=== PATIENT | male | born 1965 | race Caucasian/White ===

== ENCOUNTER 2020-07-08 16:36 | Emergency (ER) | payer BC, SELFPAY ==
[2020-07-08 16:37] VITALS: BP 130/97; PULSE 76; RESP 14; TEMP 36.8; O2SAT 97; BMI 21.7
--- NOTE | 2020-07-08 16:59 | EKG12_ITS ---
Test Reason : Blood Pressure : / mmHG Vent. Rate : 070 BPM Atrial Rate : 070 BPM P-R Int : 134 ms QRS Dur : 112 ms QT Int : 402 ms P-R-T Axes : 075 068 066 degrees QTc Int : 434 ms Normal sinus rhythm RSR' or QR pattern in V1 suggests right ventricular conduction delay Borderline ECG Confirmed by ZACHARIAH RODRIGUEZ, ROSS ([id number]), medical editor SANDOVAL ORTIZ ([id number]) on 07/10/2020 1:37:13 PM Referred By: SONY Confirmed By:ROSS SONI MD
--- NOTE | 2020-07-08 16:59 | ED.VIS.GEN ---
History of Present Illness Chief Complaint: Chest Pain Informant: Patient Onset: Yesterday Timing: Intermittent Current Severity: Mild Maximum Severity: Moderate Narrative: Patient presents with left upper chest pain that began yesterday afternoon. He states he noted an ache near the left axilla yesterday. It seemed to go away by bedtime but that he woke with the pain again this morning. It has been waxing and waning throughout the day today. At this time he states his chest feels tight. He does not feel short of breath. Patient denies history of cardiac disease. He has never had a stress test or heart cath. Family history significant for an uncle who had a cardiac arrest in his late 50s. Past Medical History - Allergies and Home Meds Allergies/Adverse Reactions: Allergies No Known Allergies Allergy (Verified 07/08/20 16:37) Primary Care Physician: Luis Daniel Ruby MD [Primary Care Provider] - As soon as possible Prior records reviewed: Yes Past Medical History: None Smoking Status: Current every day smoker Review of Systems General: Denies: Chills, Fever Eyes: Denies: Visual changes - bilaterally ENT: Denies: Bilateral ear pain Cardiovascular: Reports: Chest pain. Denies: Heart racing Respiratory: Denies: Dyspnea, Cough Gastrointestinal: Denies: Abdominal pain, Nausea, Vomiting Genitourinary: Denies: Dysuria Musculoskeletal: Denies: Swelling, Extremity Pain Skin: Denies: Rash Neurological: Denies: Headache Hematologic: Denies: Easy bruising, Easy bleeding Allergy: Denies: Uticaria Physical Exam Vital Signs/Narrative: Vital Signs Temp Pulse Resp BP Pulse Ox 07/08/20 16:37 98.2 F 76 14 130/97 H 97 Inital Vital Signs reviewed: Yes General: Well nourished, Well developed Head: Normocephalic ENT: Moist mucous membranes Neck: Supple Cardiovascular: Regular rate, Regular rhythm Respiratory: No distress, CTA bilaterally, Chest nontender Abdomen: Soft, Nontender Back: Nontender Extremities: Nontender Skin: Normal color, No rash Neurological: Alert, Oriented x3 Psychological: Normal affect Diagnostic/Tx/Re-eval Chest X-Ray - ED: 1 View, Read by ED Physician, Chronic Changes, No Infiltrates Impressions Chest X-Ray 07/08/20 17:20 IMPRESSION: Nonacute portable x-ray examination of the chest. Electronically Signed: Cb Kebede MD (Brooks) at 17:33 EDT , Service support , 07/08/20 17:20 Chest 1 View (Portable) [RAD] Stat Laboratory Results 07/08/20 07/08/20 07/08/20 16:50 16:50 16:50 WBC 4.8 RBC 4.42 L Hgb 14.2 Hct 40.7 MCV 92.1 MCH 32.1 H MCHC 34.9 RDW Std Deviation 43.1 RDW Coeff of Sammy 12.6 Plt Count 242 MPV 9.7 Immature Gran % (Auto) 0.200 Neut % (Auto) 61.7 Lymph % (Auto) 23.7 Wayne % (Auto) 12.1 H Eos % (Auto) 1.7 Baso % (Auto) 0.6 Absolute Neuts (auto) 3.0 Absolute Lymphs (auto) 1.14 Nucleated RBC % 0 D-Dimer Quant (PE/DVT) <= 0.27 Sodium 138 Potassium 3.3 L Chloride 106 Carbon Dioxide 27.0 Anion Gap 5 BUN 12 Creatinine 0.72 Estim Creat Clear Calc 111.00 Est GFR (MDRD) Af Amer 144 Est GFR (MDRD) Non-Af 119 BUN/Creatinine Ratio 16.6 Glucose 104 Calcium 8.5 Troponin I < 0.015 - EKG Initial EKG Interpretation: Sinus Rhythm - Sinus at 70 with no acute ischemia. - Medical Decision Making Patient was given aspirin here. Patient has remained comfortable throughout his ED stay. No arrhythmias noted on cardiac monitor technician. Labs are unremarkable with a negative troponin and negative D-dimer. Test results discussed with patient and at bedside. I did suggest hospital observation for potential stress test on Friday as he does have a family history of heart disease and has never had a work-up previously. At this time he would prefer to go home but does understand that he is welcome to come back at any time. He will contact his PCP for a stress test this coming week. ED Disposition - Plan for ED Patient: Disposition: Home or Assisted Living Diagnosis: Chest pain Instructions: ED Chest Pain, Uncertain Cause Referrals: Luis Daniel Ruby MD [Primary Care Provider] - As soon as possible
[2020-07-08] MEDS: Aspirin 81 MG TAB.CHEW 324 MG PO (17:12)
[2020-07-08 17:16] VITALS: O2SAT 99
[2020-07-08 17:19] LABS: Absolute Lymphocyte Count 1.14 X10^3/uL (0.83-4.51); Basophil# 0.03 X10^3/uL; Basophil% 0.6 % (0-1); Eosinophil# 0.08 X10^3/uL; Eosinophils% 1.7 % (0-5); Hematocrit 40.7 % (40-54); Hemoglobin 14.2 g/dL (13.0-16.5); Lymphocyte # 1.14 X10^3/ul (4.0); Lymphocyte % 23.7 % (19-41); Mean Corp Hgb Conc 34.9 g/dL (32-36); Mean Corpuscular Hgb 32.1 pg (27.0-32.0); Mean Corpuscular Volume 92.1 fL (80-94); Mean Platelet Vol. 9.7 fl (6.2-12.0); Monocyte# 0.58 X10^3/uL; Monocyte% 12.1 % (0-10); NRBC Flagged by Analyzer 0 % (0-5); Neutrophil # 2.97 X10^3/uL (2.7-7.7); Neutrophil % 61.7 % (47-70); Platelet Count 242 K/mm3 (150-450); RBC Distribution Width CV 12.6 % (11.6-14.6); RBC Distribution Width SD 43.1 fl (35.1-43.9); Red Blood Count 4.42 M/mm3 (4.6-6.2); White Blood Count 4.8 K/mm3 (4.4-11.0)
--- NOTE | 2020-07-08 17:20 | RAD_ITS ---
STUDY: X-RAY CHEST REASON FOR EXAM: Male, 54 years old. chest pain TECHNIQUE: AP COMPARISON: None. FINDINGS: EKG leads project over the chest. The lungs are clear and expanded. There is no demonstrated pleural abnormality. Normal size heart. Normal mediastinum and reyna. Normal visualized pulmonary arteries. There is atherosclerotic tortuosity of the aortic arch and descending thoracic aorta. Normal visualized thoracic spine. Normal visualized ribs, clavicles, and shoulders. There is no demonstrated abnormality of the visualized soft tissue structures of the upper abdomen. RAD/Chest 1 View (Portable) IMPRESSION: Nonacute portable x-ray examination of the chest. Electronically Signed: Cb Kebede MD (Brooks) at 17:33 EDT , Service support ,
[2020-07-08 17:31] LABS: D-Dimer Quantitative (DVT/PE) <= 0.27 FEU/ug/m (0.27-0.49)
[2020-07-08 17:33] LABS: Anion Gap 5 (5-15); BUN 12 mg/dL (7-18); BUN/Creat Ratio 16.6 RATIO (10-20); Calcium,Total 8.5 mg/dL (8.5-10.1); Chloride 106 mmol/L (98-107); Creatinine, Serum 0.72 mg/dL (0.70-1.30); EST Glomerular Filtration Rate 119 mL/min (>60); Est Glom Filt Rate - Afr Amer 144 mL/min (>60); Glucose 104 mg/dL (74-106); Potassium 3.3 mmol/L (3.5-5.1); Sodium Level 138 mmol/L (136-145)
[2020-07-08 18:48] VITALS: BP 129/97; PULSE 57; RESP 18; O2SAT 98
== END 2020-07-08 18:51 | disposition home or self-care (01) ==
PROVIDERS: Emergency Provider Emergency Medicine; PCP Family Medicine
DX: R07.9 Chest pain, unspecified (principal); F17.200 Nicotine dependence, unspecified, uncomplicated
CPT/HCPCS: 71045; 80048; 84484; 85025; 85379; 93005; 99284; A4216

== ENCOUNTER → 2023-11-19 | Outpatient (CLI) | payer MEDICAID, SELFPAY ==
[2023-11-19 12:16] LABS: Absolute Neutrophil Count 2.4 X10^3/uL (2.0-7.7); Basophil# 0.03 X10^3/uL; Basophil% 0.7 % (0-1); Eosinophil# 0.11 X10^3/uL; Eosinophils% 2.4 % (0-5); Hematocrit 41.9 % (40-54); Hemoglobin 14.1 g/dL (13.0-16.5); Lymphocyte % 24.5 % (19-41); Mean Corp Hgb Conc 33.7 g/dL (32-36); Mean Corpuscular Hgb 30.9 pg (27.0-32.0); Mean Corpuscular Volume 91.7 fL (80-94); Mean Platelet Vol. 10.6 fl (6.2-12.0); Monocyte# 0.82 X10^3/uL; Monocyte% 18.3 % (0-10); NRBC Flagged by Analyzer 0 % (0-5); Neutrophil # 2.42 X10^3/uL (2.7-7.7); Neutrophil % 53.9 % (47-70); Platelet Count 218 K/mm3 (150-450); RBC Distribution Width CV 13.2 % (11.6-14.6); RBC Distribution Width SD 44.9 fl (35.1-43.9); Red Blood Count 4.57 M/mm3 (4.6-6.2); White Blood Count 4.5 K/mm3 (4.4-11.0)
[2023-11-19 12:28] LABS: Vitamin D,25 Hydroxy 29.8 ng/mL
[2023-11-19 20:39] LABS: AST(SGOT) 24 U/L (15-37); Alanine Aminotransfer ALT/SGPT 21 U/L (16-61); Albumin, Serum 3.5 g/dL (3.2-5.0); Alkaline Phosphatase 64 U/L (45-117); Anion Gap 6 (5-15); BUN 19 mg/dL (7-18); BUN/Creat Ratio 26.1 RATIO (10-20); Calcium,Total 8.6 mg/dL (8.5-10.1); Chloride 108 mmol/L (98-107); Cholesterol 110 mg/dL (200); Creatinine, Serum 0.73 mg/dL (0.70-1.30); EST Glomerular Filtration Rate 117 mL/min (>60); Est Glom Filt Rate - Afr Amer 141 mL/min (>60); Globulin 3.5 g/dL (2.2-4.2); Glucose 87 mg/dL (74-106); High Density Lipoprotein 36 mg/dL; Potassium 4.2 mmol/L (3.5-5.1); Sodium Level 139 mmol/L (136-145); Thyroid Stim Hormone (TSH) 1.89 uIU/mL (0.358-3.74); Triglycerides 50 mg/dL; Very Low Density Lipoprotein 10 mg/dL (5-40)
== END | disposition home or self-care (01) ==
LOC: MFPLAB 09:37
PROVIDERS: PCP Family Medicine; Visit Provider Family Medicine
DX: L93.2 Other local lupus erythematosus (principal); Z13.1 Encounter for screening for diabetes mellitus; Z13.220 Encounter for screening for lipoid disorders
CPT/HCPCS: 36415; 80053; 80061; 82306; 84443; 85025

== ENCOUNTER 2024-02-10 09:23 | Day surgery (SDC) | payer OTHER, SELFPAY ==
[2024-02-10] VITALS (7 sets, daily range): BP systolic 100–123; BP diastolic 74–82; PULSE 62–97; RESP 16–22; TEMP 36.1–36.3; O2SAT 93–99; BMI 21.1
--- NOTE | 2024-02-10 09:54 | PRE.ANES_ITS ---
ASA Classification* ASA Classification ASA Classification: 2 Assessment & Plan Anesthesia* Anesthesia Assessment Anesthesia Assessment: Discussed sedation and/or anesthesia options, risks, benefits, and alternatives with patient/parents/legal guardian/POA. Questions invited. The patient/parents/legal guardian/POA seems to understand and agrees to proceed with anesthesia plan. Reviewed the physical assessment, medical history, allergy history and patient home medications list prior to surgery/procedure/anesthetic and documented any changes. Performed airway and anesthesia risk assessments. Anesthesia Type Anesthesia Type: MAC History Source History Obtained from:: Patient and Chart Anesthesia Focused Assessment* Temperature: 97.4 F Pulse Rate: 62 Blood Pressure: 123/80 Respiratory Rate: 16 Pulse Ox: 99 Oxygen Delivery Method: Room Air Airway Assessment Mouth opens: >3 cm Mallampati Score: IV Teeth Condition: Chipped/Broken (Patient has a couple chipped teeth.) and Loose (Tooth number 24 is slightly loose.) Neck Range of motion (ROM): Limited ROM (Somewhat decreased extension) Focused Labs Anesthesia Preop lab: CBC WBC 4.5 K/mm3 (4.4-11.0) 11/19/23 09:40 RBC 4.57 M/mm3 (4.6-6.2) L 11/19/23 09:40 Hgb 14.1 g/dL (13.0-16.5) 11/19/23 09:40 Hct 41.9 % (40-54) 11/19/23 09:40 Plt Count 218 K/mm3 (150-450) 11/19/23 09:40 CHEMISTRY Potassium 4.2 mmol/L (3.5-5.1) 11/19/23 09:40 Sodium 139 mmol/L (136-145) 11/19/23 09:40 BUN 19 mg/dL (7-18) H 11/19/23 09:40 Creatinine 0.73 mg/dL (0.70-1.30) 11/19/23 09:40 Glucose 87 mg/dL (74-106) 11/19/23 09:40 TSH 1.89 uIU/mL (0.358-3.74) 11/19/23 09:40 COAG Pre-Assessment Diagnosis/Proposed Procedure Planned Operative Procedure(s): CSCOPE Anesthesia History 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 When Was Last Pacemaker Check QUESTION #4 FULL TEXT: You/Your Family Experience fever (hyperthermia) with Anesthesia Last Oral Intake Last Oral intake: Last Oral Intake NPO since 06:30 02/10/24 09:45 Meds taken in AM with sips of No 02/10/24 09:45 water? Meds patient instructed to take am of surgery Any additional information?: Yes NPO since: 07:00 (Patient had a cup of black coffee at 7 AM.) PONV PONV - homogenizer operator: PONV - homogenizer operator Female No 02/06/24 13:58 HX of Motion Sickness No 02/06/24 13:58 HX of N/V After Surgery No 02/06/24 13:58 Non-Smoker No 02/06/24 13:58 Duration of Surgery greater No 02/06/24 13:58 than 60 minutes Number of Risk Factors PONV Score Height & Weight Height & Weight: Anesthesia: Height & Weight Height 5 ft 10 in 02/10/24 09:45 Weight: 66.9 kg 02/10/24 09:45 Body Mass Index (BMI) 21.1 02/10/24 09:45 Respiratory Assessment Respiratory Assessment - homogenizer operator: Respiratory Tract Infection Hx - homogenizer operator Hx Respiratory Tract Infection No 02/06/24 13:58 STOP Sleep Apnea STOP Sleep Apnea - homogenizer operator: STOP Sleep Apnea - homogenizer operator Hx Hypertension No 02/06/24 13:58 Hx Sleep Apnea No 02/06/24 13:58 CPAP BIPAP Do you snore loudly (louder No 02/06/24 13:58 than talking or can be heard Do you often feel tired/ No 02/06/24 13:58 fatigued/ sleepy during daytime? Has anyone observed you stop No 02/06/24 13:58 breathing during sleep? STOP Results Negative 02/06/24 13:58 QUESTION #5 FULL TEXT : Do you snore loudly (louder than talking or can be heard through closed doors)? Tobacco Use History Tobacco Use History - homogenizer operator: Tobacco Use History - homogenizer operator Tobacco Use Smoking Status Current every day smoker 02/06/24 13:58 Hx Tobacco Use Yes 02/06/24 13:58 Years Smoking Packs Smoked per Day 1.5 02/06/24 13:58 Smoking Cessation Date was within the last 15 years Hx Smoking Cessation Date Hx Smoking Cessation Counseling Any additional information?: Yes Smoking Status: Current every day smoker (Patient smoked today.) Hematologic Medial History Hematologic Hx - homogenizer operator: Hematologic Medical Hx - counselor/art therapist Hx of Blood Transfusion No 02/06/24 13:58 Hx of Transfusion in last 3 No 02/06/24 13:58 Months Date of Last Transfusion (if within last 3 months) Ever experience any problems No 02/06/24 13:58 with transfusion(s)? Specify any problems Hx of Preganancy in last 3 N/A 02/06/24 13:58 Months Nurse Filling Out Transfusion NBUCHER 02/06/24 13:58 & Questions: Date: 02/06/24 02/06/24 13:58 Time: 14:00 02/06/24 13:58 Patient unable to answer at this time (ie. confused, unrespo /Reproduction History /Reproductive History - homogenizer operator: /Reproductive Hx- homogenizer operator Hx Now Gestational Age (in weeks): EDC: Hx Hx Para [facility] Medical History Wears glasses Marijuana use BPH (benign prostatic hyperplasia) Prostate disease Heartburn Gastric reflux Chronic cough Smoker Cutaneous lupus erythematosus Family hx of colon cancer Home Medications ?Medication ?Instructions ?Recorded ?Last Taken ?Type cholecalciferol (vitamin D3) 50 50 mcg PO QDAY 01/06/24 02/09/24 History mcg (2,000 unit) capsule elderberry fruit 350 mg capsule 350 mg PO DAILY 01/06/24 02/09/24 History pyridoxine (vitamin B6) 100 mg 100 mg PO QDAY 01/06/24 02/08/24 History tablet tamsulosin 0.4 mg capsule (Flomax) 0.8 mg PO QDAY 01/06/24 Unknown History Allergy/AdvReac Type Severity Reaction Status Date / Time No Known Allergies Allergy Verified 02/10/24 09:44 Family History Brother Colon cancer, Onset Age: 70 Surgical History History of mandibular surgery (~1978) Social History household members: none and other details: current occupational status: employed 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
--- NOTE | 2024-02-10 10:30 | COLBX_PTH ---
PATHOLOGY RESULTS PATIENT: BALWINDER TAVARES LOC: EN U#:[id number] AGE/SX: 58/M ROOM: RE02/10/[address]: Dr. Soren Alston MD : 1965 BED: DIS: 02/10/2024 SPEC #: [id number] RECD: 02/10/24 12:58 STATUS: EMANUEL REAlonzo #: [id number] GENO: 02/10/24 10:[address]: Soren Alston DEPT: SURGICAL PATHOLOGY RECD BY: Kristen Alejandra ENTERED: 02/10/24 13:30 SP TYPE: COLON BX OTHR DR: Windy Bella MD Tissues: Sigmoid colon biopsy Procedures: Surgery Specimen Level IV HEADER OPERATION: Colonoscopy with polypectomy PRE-OP DIAGNOSIS: Screening TISSUE SUBMITTED: Sigmoid colon polyp MICROSCOPIC DIAGNOSIS Sigmoid colon polyp, polypectomy: Fragments of tubular adenoma. ZO/ 02/11/2024 MICROSCOPIC DESCRIPTION Slides are reviewed. GROSS DESCRIPTION Received in fixative is one container labeled with the patient's name and designated Sigmoid polyp. The specimen consists of multiple irregular fragments of light vital soft tissue that in aggregate measure 1.5 x 0.5 x 0.3 cm. The specimen is totally submitted in one cassette. 02/10/2024 TC:1 CPT:52743
--- NOTE | 2024-02-10 11:05 | HP.PCM_ITS ---
[facility] - General General Date of Admission: 02/10/24 Date of Service: 02/10/24 Chief Complaint: Screening colonoscopy HPI Narrative BALWINDER TAVARES, is a 58 M who presents today for screening colonoscopy. He has had no previous colonoscopy. He denies any GI symptoms or problems. It sounds as though his brother may have colon or rectal cancer that he is undergoing treatment for currently [facility] Medical History Wears glasses Marijuana use BPH (benign prostatic hyperplasia) Prostate disease Heartburn Gastric reflux Chronic cough Smoker Cutaneous lupus erythematosus Family hx of colon cancer Home Medications ?Medication ?Instructions ?Recorded ?Last Taken ?Type cholecalciferol (vitamin D3) 50 50 mcg PO QDAY 01/06/24 02/09/24 History mcg (2,000 unit) capsule elderberry fruit 350 mg capsule 350 mg PO DAILY 01/06/24 02/09/24 History pyridoxine (vitamin B6) 100 mg 100 mg PO QDAY 01/06/24 02/08/24 History tablet tamsulosin 0.4 mg capsule (Flomax) 0.8 mg PO QDAY 01/06/24 Unknown History Allergy/AdvReac Type Severity Reaction Status Date / Time No Known Allergies Allergy Verified 02/10/24 09:44 Family History Brother Colon cancer, Onset Age: 70 Surgical History History of mandibular surgery (~1978) Social History household members: none and other details: current occupational status: employed 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 Smoking Status: Current every day smoker (Patient smoked today.) tobacco type: cigarettes substance use type: does not use ROS Constitutional Constitutional: Reports systems reviewed and no addt'l complaints, except as documented Eyes Eyes: Reports systems reviewed and no addt'l complaints, except as documented ENT HEENT: Reports systems reviewed and no addt'l complaints, except as documented Cardiovascular Cardiovascular: Reports systems reviewed and no addt'l complaints, except as documented Respiratory/Chest Respiratory/Chest: Reports systems reviewed and no addt'l complaints, except as documented Gastrointestinal Gastrointestinal: Reports systems reviewed and no addt'l complaints, except as documented Vital Signs Vital Signs Vital Signs: 02/10/24 09:45 02/10/24 09:45 02/10/24 10:02 Temperature 97.4 F L 97.4 F L Temperature Source Temporal Pulse Rate 62 62 Respiratory Rate 16 16 Respiratory Pattern Normal Blood Pressure 123/80 H 123/80 H Blood Pressure Mean 94 Blood Pressure Source Monitor Blood Pressure Position Semi-Fowlers Blood Pressure Location Left Arm Pulse Ox 99 99 Oxygen Delivery Method Room Air Room Air Weight Weight: 147 lb 7.828 oz Body Mass Index (BMI) 21.1 Physical Exam Narrative He is alert and oriented x 3. He is in no acute distress. Head is normocephalic and atraumatic. Pupils are equal round and reactive to light. Abdomen is soft nontender nondistended. Assessment & Plan Assessment/Plan (1) Encounter for screening for malignant neoplasm of colon: PLAN: Plan The patient is a 58-year-old male in need of a screening colonoscopy. This will be his first colonoscopy. We discussed the details of the planned procedure and he wishes to proceed. This will begin momentarily. Charges/Coding Visit Charges Inpatient E&M: 73613 Init Hosp L1
--- NOTE | 2024-02-10 11:54 | PCM.POST.ANE ---
Anesthesia: Postop Eval I Current Vital Signs Temperature: 97 F Pulse Rate: 97 Blood Pressure: 105/74 Respiratory Rate: 16 Pulse Ox: 95 Oxygen Delivery Method: Room Air Assessment Airway patent: Yes Spontaneous unlabored respirations: Yes Mental status: Asleep (but profuse coughing d/t smoking hx) nausea: No Vomiting: No Anesthesia Complication: No Fluid Hydration Crystalloid volume administer (ml): 50 Total IV fluid infused: 50 Progress Note Anesthesia document: Postop Eval 1 completed: Yes
--- NOTE | 2024-02-10 11:55 | PCM.POSTANE2 ---
Anesthesia Postop Eval I Sum Postop Eval Completion status Anesthesia document: Postop Eval 1 completed: Yes Anesthesia Postop Eval I Summary Anesthesia Postop Eval I Summary: Anesthesia Postop Eval I: Assessment Summary Airway patent Yes 02/10/24 11:55 [email or web address] Spontaneous unlabored Yes 02/10/24 11:55 [email or web address] respirations Mental status Asleep - but 02/10/24 11:55 [email or web address] profuse coughing d /t smoking hx nausea No 02/10/24 11:55 [email or web address] Vomiting No 02/10/24 11:55 [email or web address] Anesthesia Postop Eval I: Fluid Summary Crystalloid volume administer 50 02/10/24 11:55 [email or web address] (ml) Colloids volume administered ( ml) Blood Product volume administered (ml) Total IV fluid infused 50 02/10/24 11:55 [email or web address] Anesthesia Postop Eval I: Summary Notes Anesthesia Complication No 02/10/24 11:55 [email or web address] Anesthesia Complication Comment: Post-operative progress note Anesthesia: Postop Eval II Evaluation Mental status: Awake Pain Level: 0 nausea: No Vomiting: No
--- NOTE | 2024-02-10 12:01 | OP.COLON_ITS ---
Patient Name: Javon Casas Procedure Date: 02/10/2024 11:01 AM Date of : 1965 Age: 58 Procedure: Colonoscopy Indications: Screening in patient at increased risk: Family history of 1st-degree relative with colorectal cancer Providers: Soren Alston MD Referring MD: Windy Bella Md Medicines: Monitored Anesthesia Care Patient Profile: Refer to note in patient chart for documentation of history and physical. Last Colonoscopy: none. The patient's first colonoscopy is today. Complications: No immediate complications. Estimated blood loss: None. Procedure: Pre-Anesthesia Assessment: - Prior to the procedure, a History and Physical was performed, and patient medications and allergies were reviewed. The patient's tolerance of previous anesthesia was also reviewed. The risks and benefits of the procedure and the sedation options and risks were discussed with the patient. All questions were answered, and informed consent was obtained. Prior Anticoagulants: The patient has taken no anticoagulant or antiplatelet agents. ASA Grade Assessment: II - A patient with mild systemic disease. After reviewing the risks and benefits, the patient was deemed in satisfactory condition to undergo the procedure. After I obtained informed consent, the scope was passed under direct vision. Throughout the procedure, the patient's blood pressure, pulse, and oxygen saturations were monitored continuously. The colonoscope was introduced through the anus and advanced to the cecum, identified by appendiceal orifice and ileocecal valve. The ileocecal valve, appendiceal orifice, and rectum were photographed. The entire colon was well visualized. The colonoscopy was performed without difficulty. The patient tolerated the procedure well. The quality of the bowel preparation was adequate. Moderate Sedation: See the other procedure note for documentation of moderate sedation with intraservice time. Scope In: 11:18:05 AM Scope Withdrawal Time 0 hours 13 minutes 24 seconds Scope Out: 11:42:14 AM Total Procedure Duration Time 0 hours 24 minutes 9 seconds Findings: The perianal and digital rectal examinations were normal. Non-bleeding hemorrhoids were found during retroflexion. The hemorrhoids were moderate. A 9 mm polyp was found in the sigmoid colon. The polyp was semi-sessile. The polyp was removed with a hot snare. Resection and retrieval were complete. Verification of patient identification for the specimen was done by the nurse using the patient's name, date and medical record number. Estimated blood loss: none. The exam was otherwise without abnormality on direct and retroflexion views. Impression: - Non-bleeding hemorrhoids. - One 9 mm polyp in the sigmoid colon, removed with a hot snare. Resected and retrieved. - The examination was otherwise normal on direct and retroflexion views. Recommendation: - Discharge patient to home (ambulatory). - High fiber diet indefinitely. - Await pathology results. - Repeat colonoscopy in 3 years for surveillance. - Return to my office PRN. - Continue present medications. Procedure Code(s): --- Professional --- 86966, Colonoscopy, flexible; with removal of tumor(s), polyp(s), or other lesion(s) by snare technique Diagnosis Code(s): --- Professional --- Z80.0, Family history of malignant neoplasm of digestive organs D12.5, Benign neoplasm of sigmoid colon K64.9, Unspecified hemorrhoids CPT copyright 2021 [employer]. All rights reserved. The codes documented in this report are preliminary and upon packaging specialist review may be revised to meet current compliance requirements. Soren Alston MD 02/10/2024 12:00:55 PM This report has been signed electronically. Number of Addenda: 0 Note Initiated On: 02/10/2024 11:01 AM
--- NOTE | 2024-02-10 12:01 | OP.CCLET_ITS ---
02/10/2024 Windy Bella Md Re : Colonoscopy procedure for Javon Casas [place] This procedure was performed on Saturday, February 10, 2024. My impressions and recommendations are as follows: Impressions : - Non-bleeding hemorrhoids. - One 9 mm polyp in the sigmoid colon, removed with a hot snare. Resected and retrieved. - The examination was otherwise normal on direct and retroflexion views. Recommendations : - Discharge patient to home (ambulatory). - High fiber diet indefinitely. - Await pathology results. - Repeat colonoscopy in 3 years for surveillance. - Return to my office PRN. - Continue present medications. My findings are described in the full procedure note, which is enclosed. If I can be of further assistance, please feel free to contact me at . Sincerely, Soren Alston MD 02/10/2024 12:00:55 PM This report has been signed electronically.
== END 2024-02-10 12:40 | disposition home or self-care (01) ==
LOC: EN 09:24 → AC 09:25
PROVIDERS: PCP Family Medicine; Referring Provider Family Medicine; Visit Provider Surgery
PROC: 0DJD8ZZ Inspection of Lower Intestinal Tract, Via Natural or Artificial Opening Endoscopic (ICD-10-PCS; CPT 45378; principal; 2024-02-10 10:25)
DX: Z12.11 Encounter for screening for malignant neoplasm of colon (principal); K64.9 Unspecified hemorrhoids; F17.210 Nicotine dependence, cigarettes, uncomplicated; D12.5 Benign neoplasm of sigmoid colon; Z80.0 Family history of malignant neoplasm of digestive organs
CPT/HCPCS: 45385; 88305; A4216; J2405

== ENCOUNTER → 2024-03-26 | Outpatient (CLI) | payer OTHER, SELFPAY ==
[2024-03-26 12:06] LABS: PSA,Total - Annual Screen 0.89 ng/mL (0.00-4.00)
== END | disposition home or self-care (01) ==
LOC: MFPLAB 09:59
PROVIDERS: PCP Family Medicine; Referring Provider Family Medicine; Visit Provider Family Medicine
DX: N40.0 Benign prostatic hyperplasia without lower urinary tract symptoms (principal)
CPT/HCPCS: 36415; 84153; G0103

== ENCOUNTER → 2024-12-10 | Outpatient (CLI) | payer OTHER, SELFPAY ==
--- OUTSIDE RECORDS SUMMARY | 2024-12-10 17:05 | XMS RPT_ITS | CCD ---
Author Organization [facility] Team Providers Care Corporate Responsibility Officer Name Role Phone NAHED RODRIGUEZ Referring Unavailable NAHED RODRIGUEZ Referring Unavailable Unavailable Primary Care Provider UnavailWindy Busch Referring Unavailable Soren Alston Attending Unavailable Jena, Windy Primary Care Unavailable Jena, Windy Attending Unavailable Luis Daniel Ruby Primary Care Unavailable Jena, Chalon Referring Unavailable Jena, Chalon Primary Care Unavailable Windy Bella Attending Unavailable Windy Bella Referring Unavailable Lina Bellaon Primary Care Unavailable Soren Alston Consulting Unavailable Soren Alston Attending Unavailable Apple Chow Attending Unavailable Jnea, Chalon Primary Care Unavailable Medications Current Medications Medication Drug Class(es) Dates Sig (Normalized) Sig (Original) Cod Liver Oil (2 sources) Start: 8 COD LIVER OIL CAP Take one(1) tablet daily. 0 05/22/2007 Active fa/mv,ca,fe,min/lycope ne/lut(CENTRUM 0.4 MG-162 MG-18 MG TAB) (2 sources) Start: 8 fa/mv,ca,fe,min/lycop lane/lut(CENTRUM 0.4 MG-162 MG-18 MG TAB) Take one(1) tablet daily. 0 05/22/2007 Active fluocinonide 0.5 mg/ml topical cream (2 sources) Corticosteroid Start: 8 fluocinonide(LIDEX 0.05 % TOPICAL CREAM) Apply to rash on hands, chest, and back daily for 2 weeks on, 1 week off. Do not apply to face or skin folds. 1 pound jar 2 05/29/2007 Active fluticasone propionate 0.5 mg/ml topical lotion (2 sources) Corticosteroid Start: 8 fluticasone propionate(CUTIVATE 0.05 % LOTION) apply twice daily large 1 05/29/2007 Active hydroxychloroquine sulfate 200 mg oral tablet (2 sources) Antimalarial, Antirheumatic Agent Start: 8 hydroxychloroquine sulfate(PLAQUENIL 200 MG TAB) Take one(1) tablet daily. 30 3 05/22/2007 Active vitamin b6 100 mg oral tablet (2 sources) Start: 8 pyridoxine hcl(VITAMIN B-6 100 MG TAB) Take one(1) tablet daily. 0 05/22/2007 Active Problems Problem Classification Problem Date Documented Da te Episodic/Chronic Hyperplasia of prostate (1 source) Benign prostatic hyperplasia without lower urinary tract symptoms; Translations: [Benign prostatic hyperplasia without lower urinary tract symptoms] Onset: 04-27-2024 Chronic Other inflammatory condition of skin (1 source) Other local lupus erythematosus; Translations: [Other local lupus erythematosus] Onset: 01-06-2024 Chronic Other injuries and conditions due to external causes (1 source) Unspecified injury of right ankle, initial encounter; Translations: [Injury of right ankle, initial encounter] Onset: 04-22-2023 Episodic Other injuries and conditions due to external causes (1 source) Unspecified injury of right foot, initial encounter; Translations: [Injury of right heel, initial encounter] Onset: 04-22-2023 Episodic Other injuries and conditions due to external causes (1 source) Injury of right ankle; Translations: [Unspecified injury of right ankle, initial encounter] 04-22-2023 Episodic Other injuries and conditions due to external causes (1 source) Heel injury; Translations: [Unspecified injury of right foot, initial encounter] 04-22-2023 Episodic Other screening for suspected conditions (not mental disorders or infectious disease) (2 sources) Encounter for screening for malignant neoplasm of colon; Translations: [Encounter for screening for malignant neoplasm of colon] Onset: 02-19-2024 Episodic Results Test Name Value Interpretation Reference Range Facility PSA,Total - Annual Screenon 03-26-2024 PSA,TOT SCREEN 0.89 ng/mL Normal 0.00-4.00 [facility] Comment on above: Order Comment: Order Date: 03/26/24 Order Info: 2857-1 - PSA Result Comment: This test was performed using the TPSA assay method for the Dimension chemistry system. Values obtained with different assay methods cannot be used interchangably. When changing PSA assays in the course of monitoring a patient, additional sequential testing should be carried out to confirm baseline values. Performed By: #### L [id number] #### [facility] [address] [place], [address] Colonoscopy Reporton 024 Colonoscopy Report [facility] Medical Records Department [address] [place] [address] Colonoscopy Report MR#: [id number] Acct: [id number] Name: BALWINDER TAVARES Rep #: [id number] : 1965 58 From: Soren Alston MD PCP: Dr. Windy Bella MD Status:[facility] Patient Name: Balwinder Tavares Procedure Date: 02/10/2024 11:01 AM Date of : 1965 Age: 58 Procedure: Colonoscopy Indications: Screening in patient at increased risk: Family history of 1st-degree relative with colorectal cancer Providers: Soren Alston MD Referring MD: Windy Bella Md Medicines: Monitored Anesthesia Care Patient Profile: Refer to note in patient chart for documentation of history and physical. Last Colonoscopy: none. The patient's first colonoscopy is today. Complications: No immediate complications. Estimated blood loss: None. Procedure: Pre-Anesthesia Assessment: - Prior to the procedure, a History and Physical was performed, and patient medications and allergies were reviewed. The patient's tolerance of previous anesthesia was also reviewed. The risks and benefits of the procedure and the sedation options and risks were discussed with the patient. All questions were answered, and informed consent was obtained. Prior Anticoagulants: The patient has taken no anticoagulant or antiplatelet agents. ASA Grade Assessment: II - A patient with mild systemic disease. After reviewing the risks and benefits, the patient was deemed in satisfactory condition to undergo the procedure. After I obtained informed consent, the scope was passed under direct vision. Throughout the procedure, the patient's blood pressure, pulse, and oxygen saturations were monitored continuously. The colonoscope was introduced through the anus and advanced to the cecum, identified by appendiceal orifice and ileocecal valve. The ileocecal valve, appendiceal orifice, and rectum were photographed. The entire colon was well visualized. The colonoscopy was performed without difficulty. The patient tolerated the procedure well. The quality of the bowel preparation was adequate. Moderate Sedation: See the other procedure note for documentation of moderate sedation with intraservice time. Scope In: 11:18:05 AM Scope Withdrawal Time 0 hours 13 minutes 24 seconds Scope Out: 11:42:14 AM Total Procedure Duration Time 0 hours 24 minutes 9 seconds Findings: The perianal and digital rectal examinations were normal. Non-bleeding hemorrhoids were found during retroflexion. The hemorrhoids were moderate. A 9 mm polyp was found in the sigmoid colon. The polyp was semi-sessile. The polyp was removed with a hot snare. Resection and retrieval were complete. Verification of patient identification for the specimen was done by the nurse using the patient's name, date and medical record number. Estimated blood loss: none. The exam was otherwise without abnormality on direct and retroflexion views. Impression: - Non-bleeding hemorrhoids. - One 9 mm polyp in the sigmoid colon, removed with a hot snare. Resected and retrieved. - The examination was otherwise normal on direct and retroflexion views. Recommendation: - Discharge patient to home (ambulatory). - High fiber diet indefinitely. - Await pathology results. - Repeat colonoscopy in 3 years for surveillance. - Return to my office PRN. - Continue present medications. Procedure Code(s): --- Professional --- 38445, Colonoscopy, flexible; with removal of tumor(s), polyp(s), or other lesion(s) by snare technique Diagnosis Code(s): --- Professional --- Z80.0, Family history of malignant neoplasm of digestive organs D12.5, Benign neoplasm of sigmoid colon K64.9, Unspecified hemorrhoids CPT copyright 2021 [employer]. All rights reserved. The codes documented in this report are preliminary and upon nursing staffing coordinator review may be revised to meet current compliance requirements. Soren Alston MD 02/10/2024 12:00:55 PM This report has been signed electronically. Number of Addenda: 0 Note Initiated On: 02/10/2024 11:01 AM 02/10/24 1201 Date Soren Callaway Signature: Date (if indicated) CC: Dr. Windy Bella MD; Dr. Soren Alston MD Date Dictated: 02/10/24 1101 Date Transcribed: [employer] Senior Officer: CONRADO Signed [facility] MR/[email or web address].ANE 02-10-2024 MR/POSTOP.[facility] Medical Records Department [address] [place] [address] Anesthesia Postop Eval I 02/10/24 1154 MR#: [id number] Acct: [id number] Name: BALWINDER TAVARES Rep #: [id number] : 1965 58 From: Salomon Montes PCP: Dr. Windy Bella MD Status:REG [facility] Race: C Location: [place] [address] Anesthesia: Postop Eval I Current Vital Signs Temperature: 97 F Pulse Rate: 97 Blood Pressure: 105/74 Respiratory Rate: 16 Pulse Ox: 95 Oxygen Delivery Method: Room Air Assessment Airway patent: Yes Spontaneous unlabored respirations: Yes Mental status: Asleep (but profuse coughing d/t smoking hx) nausea: No Vomiting: No Anesthesia Complication: No Fluid Hydration Crystalloid volume administer (ml): 50 Total IV fluid infused: 50 Progress Note Anesthesia document: Postop Eval 1 completed: Yes 02/10/24 1155 Date Salomon Callaway Signature: Date CC: Signed [facility] [id number] 02-10-2024 MR/POST[address] Medical Records Department [address] [place] [address] Anesthesia Postop Eval II 02/10/24 1155 MR#: [id number] Acct: [id number] Name: BALWINDER TAVARES Rep #: [id number] : 1965 58 From: Darrin Field MD PCP: Dr. Windy Bella MD Status:REG [facility]C Y Race: C Location: [place] [address]- Anesthesia Postop Eval I Sum Postop Eval Completion status Anesthesia document: Postop Eval 1 completed: Yes Anesthesia Postop Eval I Summary Anesthesia Postop Eval I Summary: Anesthesia Postop Eval I: Assessment Summary Airway patent Yes 02/10/24 11:55 [email or web address] Spontaneous unlabored Yes 02/10/24 11:55 [email or web address] respirations Mental status Asleep - but 02/10/24 11:55 [email or web address] profuse coughing d /t smoking hx nausea No 02/10/24 11:55 [email or web address] Vomiting No 02/10/24 11:55 [email or web address] Anesthesia Postop Eval I: Fluid Summary Crystalloid volume administer 50 02/10/24 11:55 [email or web address] (ml) Colloids volume administered ( ml) Blood Product volume administered (ml) Total IV fluid infused 50 02/10/24 11:55 [email or web address] Anesthesia Postop Eval I: Summary Notes Anesthesia Complication No 02/10/24 11:55 [email or web address] Anesthesia Complication Comment: Post-operative progress note Anesthesia: Postop Eval II Evaluation Mental status: Awake Pain Level: 0 nausea: No Vomiting: No 02/10/24 1156 Date Darrin Field MD Cosigner Signature: Date CC: Signed Normal [facility] Surgery Specimen Level Kuldeep 02-10-2024 Surgery Specimen Level IV ---- Patient Age/Sex Location Account Attending Physician ---- BALWINDER TAVARES 58/M EN [id number] Dr. Soren Alston MD ---- Specimen: [id number] Received: 02/10/24 Status: EMANUEL Venegas Num: [id number] Spec Type: COLON BX Subm Dr: Dr. Soren Alston MD HEADER OPERATION: Colonoscopy with polypectomy PRE-OP DIAGNOSIS: Screening TISSUE SUBMITTED: Sigmoid colon polyp ---- MICROSCOPIC DIAGNOSIS Sigmoid colon polyp, polypectomy: Fragments of tubular adenoma. ZO/ 02/11/2024 MICROSCOPIC DESCRIPTION Slides are reviewed. GROSS DESCRIPTION Received in fixative is one container labeled with the patient's name and designated Sigmoid polyp. The specimen consists of multiple irregular fragments of light vital soft tissue that in aggregate measure 1.5 x 0.5 x 0.3 cm. The specimen is totally submitted in one cassette. 02/10/2024 TC:1 CPT:91709 ---- Patient Age/Sex Location Account Attending Physician ---- BALWINDER TAVARES 58/M EN [id number] Dr. Soren Alston MD ---- Signed (signature on file) Dr. Jeff Rowan MD 02/11/24 1150 ---- Normal [facility] Comment on above: Performed By: #### P SUIV #### [facility] [address] [place], [address] CBC W/Diff, Automatedon 08-0 7-4 Absolute Lymph 1.10 X10 3/uL Normal 0.83-4.51 [facility] Comment on above: Performed By: #### L 100.0100, L506.1000, L500.4050, L500.4100, L501.9520 #### [facility] [address] [place], [address] Absolute Neut 2.4 X10 3/uL Normal 2.0-7.7 [facility] Comment on above: Performed By: #### L 100.0100, L506.1000, L500.4050, L500.4100, L501.9520 #### [facility] [address] [place], [address] Basophils/100 WBC (Bld) 0.7 % Normal 0-1 [facility] Comment on above: Performed By: #### L 100.0100, L506.1000, L500.4050, L500.4100, L501.9520 #### [facility] [address] [place], [address] Eosinophils/100 WBC (Bld) 2.4 % Normal 0-5 [facility] Comment on above: Performed By: #### L 100.0100, L506.1000, L500.4050, L500.4100, L501.9520 #### [facility] [address] [place], [address] Erythrocyte distribution width (RBC) [Ratio] 13.2 % Normal 11.6-14.6 [facility] Comment on above: Performed By: #### L 100.0100, L506.1000, L500.4050, L500.4100, L501.9520 #### [facility] [address] [place], [address] Hematocrit (Bld) [Volume fraction] 41.9 % Normal 40-54 [facility] Comment on above: Performed By: #### L 100.0100, L506.1000, L500.4050, L500.4100, L501.9520 #### [facility] [address] [place], [address] Hemoglobin (Bld) [Mass/Vol] 14.1 g/dL Normal 13.0-16.5 [facility] Comment on above: Performed By: #### L 100.0100, L506.1000, L500.4050, L500.4100, L501.9520 #### [facility] [address] [place], [address] IG% 0.200 Normal 0.0-0.9 [facility] Comment on above: Result Comment: IG% - Immature Granulocytes (promyelocytes, myelocytes and metamyelocytes) > 1% indicates that a LEFT SHIFT is Present. Performed By: #### L 100.0100, L506.1000, L500.4050, L500.4100, L501.9520 #### [facility] [address] [place], [address] Lymphocytes/100 WBC (Bld) 24.5 % Normal 19-41 [facility] Comment on above: Performed By: #### L 100.0100, L506.1000, L500.4050, L500.4100, L501.9520 #### [facility] [address] [place], [address] MCH (RBC) [Entitic mass] 30.9 pg Normal 27.0-32.0 [facility] Comment on above: Performed By: #### L 100.0100, L506.1000, L500.4050, L500.4100, L501.9520 #### [facility] [address] [place], [address] MCHC (RBC) [Mass/Vol] 33.7 g/dL Normal 32-36 [facility] Comment on above: Performed By: #### L 100.0100, L506.1000, L500.4050, L500.4100, L501.9520 #### [facility] [address] [place], [address] MCV (RBC) [Entitic vol] 91.7 fL Normal 80-94 [facility] Comment on above: Performed By: #### L 100.0100, L506.1000, L500.4050, L500.4100, L501.9520 #### [facility] [address] [place], [address] Monocytes/100 WBC (Bld) 18.3 % High 0-10 [facility] Comment on above: Performed By: #### L 100.0100, L506.1000, L500.4050, L500.4100, L501.9520 #### [facility] [address] [place], [address] Neutrophils/100 WBC (Bld) 53.9 % Normal 47-70 [facility] Comment on above: Performed By: #### L 100.0100, L506.1000, L500.4050, L500.4100, L501.9520 #### [facility] [address] [place], [address] Nucleated RBC (Bld) [#/Vol] 0 10*3/uL Normal 0-5 [facility] Comment on above: Performed By: #### L 100.0100, L506.1000, L500.4050, L500.4100, L501.9520 #### [facility] [address] [place], [address] Platelet mean volume (Bld) [Entitic vol] 10.6 fL Normal 6.2-12.0 [facility] Comment on above: Performed By: #### L 100.0100, L506.1000, L500.4050, L500.4100, L501.9520 #### [facility] [address] [place], [address] Platelets (Bld) [#/Vol] 218 10*3/uL Normal 150-450 [facility] Comment on above: Performed By: #### L 100.0100, L506.1000, L500.4050, L500.4100, L501.9520 #### [facility] [address] [place], [address] RBC (Bld) [#/Vol] 4.57 10*6/uL Low 4.6-6.2 [facility] Comment on above: Performed By: #### L 100.0100, L506.1000, L500.4050, L500.4100, L501.9520 #### [facility] [address] [place], [address] RDW SD 44.9 fl High 35.1-43.9 [facility] Comment on above: Performed By: #### L 100.0100, L506.1000, L500.4050, L500.4100, L501.9520 #### [facility] [address] [place], [address] WBC (Bld) [#/Vol] 4.5 10*3/uL Normal 4.4-11.0 [facility] Comment on above: Performed By: #### L 100.0100, L506.1000, L500.4050, L500.4100, L501.9520 #### [facility] [address] [place], [address] Comprehensive Metabolic Prof ilon 11-19-2023 Albumin [Mass/Vol] 3.5 g/dL Normal 3.2-5.0 [facility] Comment on above: Performed By: #### L 100.0100, L506.1000, L500.4050, L500.4100, L501.9520 #### [facility] [address] [place], [address] Albumin/Globulin [Mass ratio] 1.0 {ratio} Normal 0.9-2.4 [facility] Comment on above: Performed By: #### L 100.0100, L506.1000, L500.4050, L500.4100, L501.9520 #### [facility] [address] [place], [address] ALK P 64 U/L Normal 45-117 [facility] Comment on above: Performed By: #### L 100.0100, L506.1000, L500.4050, L500.4100, L501.9520 #### [facility] [address] [place], [address] ALT [Catalytic activity/Vol] 21 U/L Normal 16-61 [facility] Comment on above: Performed By: #### L 100.0100, L506.1000, L500.4050, L500.4100, L501.9520 #### [facility] [address] [place], [address] AST [Catalytic activity/Vol] 24 U/L Normal 15-37 [facility] Comment on above: Performed By: #### L 100.0100, L506.1000, L500.4050, L500.4100, L501.9520 #### [facility] [address] [place], [address] Bilirubin [Mass/Vol] 0.40 mg/dL Normal 0.20-1.00 [facility] Comment on above: Result Comment: For patients on eltrombopag therapy, use of Dimension [place] TBIL is not recommended. Performed By: #### L 100.0100, L506.1000, L500.4050, L500.4100, L501.9520 #### [facility] [address] [place], [address] BUN/CRE 26.1 RATIO High 10-20 [facility] Comment on above: Performed By: #### L 100.0100, L506.1000, L500.4050, L500.4100, L501.9520 #### [facility] [address] [place], [address] CA,Total 8.6 mg/dL Normal 8.5-10.1 [facility] Comment on above: Performed By: #### L 100.0100, L506.1000, L500.4050, L500.4100, L501.9520 #### [facility] [address] [place], [address] Chloride [Moles/Vol] 108 mmol/L High 98-107 [facility] Comment on above: Performed By: #### L 100.0100, L506.1000, L500.4050, L500.4100, L501.9520 #### [facility] [address] [place], [address] CO2 [Moles/Vol] 25.0 mmol/L Normal 21.0-32.0 [facility] Comment on above: Performed By: #### L 100.0100, L506.1000, L500.4050, L500.4100, L501.9520 #### [facility] [address] [place], [address] Creatinine [Mass/Vol] 0.73 mg/dL Normal 0.70-1.30 [facility] Comment on above: Result Comment: The validity of the calculated GFR GFRAA in patients over 70 years has not been determined. Clinical correlation is essential. Performed By: #### L 100.0100, L506.1000, L500.4050, L500.4100, L501.9520 #### [facility] [address] [place], [address] EST GFR - AA 141 mL/min Normal >60 [facility] Comment on above: Result Comment: Afri can [employer] GFR Calc Performed By: #### L 100.0100, L506.1000, L500.4050, L500.4100, L501.9520 #### [facility] [address] [place], [address] GAP 6 Normal 5-15 [facility] Comment on above: Performed By: #### L 100.0100, L506.1000, L500.4050, L500.4100, L501.9520 #### [facility] [address] [place], [address] GFR/1.73 sq M.predicted among non-blacks MDRD (S/P/Bld) [Vol rate/Area] 117 mL/min/{1.73_m2} Normal >60 [facility] Comment on above: Result Comment: Non- GFR Calc Performed By: #### L 100.0100, L506.1000, L500.4050, L500.4100, L501.9520 #### [facility] [address] [place], [address] Globulin (S) [Mass/Vol] 3.5 g/dL Normal 2.2-4.2 [facility] Comment on above: Performed By: #### L 100.0100, L506.1000, L500.4050, L500.4100, L501.9520 #### [facility] [address] [place], [address] Glucose [Mass/Vol] 87 mg/dL Normal 74-106 [facility] Comment on above: Performed By: #### L 100.0100, L506.1000, L500.4050, L500.4100, L501.9520 #### [facility] [address] [place], [address] Potassium [Moles/Vol] 4.2 mmol/L Normal 3.5-5.1 [facility] Comment on above: Performed By: #### L 100.0100, L506.1000, L500.4050, L500.4100, L501.9520 #### [facility] [address] [place], [address] Sodium [Moles/Vol] 139 mmol/L Normal 136-145 [facility] Comment on above: Performed By: #### L 100.0100, L506.1000, L500.4050, L500.4100, L501.9520 #### [facility] [address] [place], [address] T PROT 7.0 g/dL Normal 6.4-8.2 [facility] Comment on above: Performed By: #### L 100.0100, L506.1000, L500.4050, L500.4100, L501.9520 #### [facility] [address] [place], [address] Urea nitrogen [Mass/Vol] 19 mg/dL High 7-18 [facility] Comment on above: Performed By: #### L 100.0100, L506.1000, L500.4050, L500.4100, L501.9520 #### [facility] [address] [place], [address] Lipid Profileon 11-19-2023 Cholesterol [Mass/Vol] 110 mg/dL Normal 200 [facility] Comment on above: Result Comment: <200 mg/dL Desirable 200-240 mg/dL Borderline >240 mg/dL High Risk Performed By: #### L 100.0100, L506.1000, L500.4050, L500.4100, L501.9520 #### [facility] [address] [place], [address] Cholesterol in HDL [Mass/Vol] 36 mg/dL Low [facility] Comment on above: Result Comment: The drugs N-Acetylcysteine and Metamizole may falsely depress this assay. Reference Range HDL <40 mg/dL Low HDL Cholesterol HDL >or= 60 mg/dL High HDL Cholesterol Performed By: #### L 100.0100, L506.1000, L500.4050, L500.4100, L501.9520 #### [facility] [address] [place], [address] Cholesterol in LDL [Mass/Vol] 64 mg/dL Normal 0-130 [facility] Comment on above: Performed By: #### L 100.0100, L506.1000, L500.4050, L500.4100, L501.9520 #### [facility] [address] [place], [address] Cholesterol in VLDL [Mass/Vol] 10 mg/dL Normal 5-40 [facility] Comment on above: Performed By: #### L 100.0100, L506.1000, L500.4050, L500.4100, L501.9520 #### [facility] [address] [place], [address] Triglyceride [Mass/Vol] 50 mg/dL Normal [facility] Comment on above: Result Comment: The drugs N-Acetylcysteine and Metamizole may falsely depress this assay. Serum Triglycerides Reference Interval Normal <150 mg/dL Borderline high 150 - 199 mg/dL High 200 - 499 mg/dL Very High > or = 500 mg/dL Performed By: #### L 100.0100, L506.1000, L500.4050, L500.4100, L501.9520 #### [facility] [address] [place], [address] Thyroid Stim Hormone (TSH)on 11-19-2023 TSH 1.89 uIU/mL Normal 0.358-3.74 [facility] Comment on above: Performed By: #### L 100.0100, L506.1000, L500.4050, L500.4100, L501.9520 #### [facility] [address] [place], [address] Vitamin D,25 Hydroxyon 11-18 Vitamin D 25-OH 29.8 ng/mL Normal [facility] Comment on above: Result Comment: [place] min D 25(OH) Status Range Deficiency <20 ng/mL (50nmol/L) Insufficiency 20 - 30 ng/mL (50 - 75 nmol/L) Sufficiency 30 - 100 ng/mL (75 - 250 nmol/L) Toxicity >100 ng/mL (>250 nmol/L) Performed By: #### L 100.0100, L506.1000, L500.4050, L500.4100, L501.9520 #### [facility] [address] [place], [address] CNOVon 04-22-2023 CN Office Visit (UCWSTR ) BALWINDER TAVARES ([id number]) 1965 M Date Time Provider Department 04/22/23 10:15 AM NAHED RODRIGUEZ [facility] During your visit today, we recorded the following information about you: Temperature Pulse Respiration Blood pressure 96.9 degrees 70/minute 16/minute 120/68 Weight 70.8 kg Nahed Rodriguez PA-C 04/22/2023 11:24 AM Signed 04/22/2023 Patient presents with: Heel Pain: right x Friday, fell off ladder and hit heel on concrete SUBJECTIVE: This is a 57 year old that is here today for Complaint(s) of right heel pain x 2 days ago. States he was on approximately the 4th rung of a ladder in his garage wearing slippers and slipped and landed on his right heel. Unable to bear weight. Painful, but slightly improved when sitting, but exteremly painful with any weight bearing. No pain with movement of the ankle and foot. Has tried advil over the last couple days. Notes some swelling and bruising that started yesterday. No head injury. Did not loose consciousness. No past medical history on file. ALLERGIES Patient has no known allergies. MEDICATIONS Current Outpatient Medications Medication Sig pyridoxine hcl(VITAMIN B-6 100 MG TAB) Take one(1) tablet daily. fluticasone propionate(CUTIVATE 0.05 % LOTION) apply twice daily (Patient not taking: Reported on 04/22/2023) fluocinonide(LIDEX 0.05 % TOPICAL CREAM) Apply to rash on hands, chest, and back daily for 2 weeks on, 1 week off. Do not apply to face or skin folds. (Patient not taking: Reported on 04/22/2023) fa/mv,ca,fe,min/lycope ne/lut(CENTRUM 0.4 MG-162 MG-18 MG TAB) Take one(1) tablet daily. (Patient not taking: Reported on 04/22/2023) COD LIVER OIL CAP Take one(1) tablet daily. (Patient not taking: Reported on 04/22/2023) hydroxychloroquine sulfate(PLAQUENIL 200 MG TAB) Take one(1) tablet daily. (Patient not taking: Reported on 04/22/2023) No current facility-administered medications for this visit. SOCIAL HISTORY REVIEW OF SYSTEMS See HPI OBJECTIVE: BP 120/68 Pulse 70 Temp 36.1 ?C (96.9 ?F) Resp 16 Wt 70.8 kg (156 lb) SpO2 97% APPEARANCE Well appearing, alert, in no acute distress, well-hydrated, well nourished. EXTREMITIES Extremities normal, No deformities, + ecchymosis inferior to the right medial malleolus just above heel. + TTP. + TTP central calcaneus. Normal ROM ankle and digits. No TTP malleoli. Negative Dunbar's. No TTP over achilles tendon or insertion. No edema, and Normal pulses bilaterally. Good capillary refill, sensation grossly intact. ASSESSMENT/PLAN: 1. Injury of right heel, initial encounter - ICD9: 959.7, ICD10: S99.921A (primary diagnosis) XR negative for fracture. Suspect contusion. Normal exam and testing of the achilles. Patient prefers tennis shoe over post op shoe. Given crutches at exam today. Rest with crutches and then advance weight bearing as tolerating If not improving or worsening-recommend close f/u with podiatry or ortho. - XR CALCANEUS 2V AXIAL/LAT RIGHT - XR ANKLE GENERAL 3V AP/LAT/OBL RIGHT - CONSULT TO PODIATRY 2. Injury of right ankle, initial encounter - ICD9: 959.7, ICD10: S99.911A As above - XR ANKLE GENERAL 3V AP/LAT/OBL RIGHT Nahed Rodriguez PA-C 04/22/2023 Allergies As of Date: 04/22/2023 (No Known Allergies) Date Reviewed: 04/22/2023 Reviewed by: Nahed Rodriguez PA-C - Fully Assessed Reason for Visit: Heel Pain [1025] Cmt: right x Friday, fell off ladder and hit heel on concrete Primary Visit Diagnosis:Injury of right heel, initial encounter [S99.921A] Other Visit Diagnosis:Injury of right ankle, initial encounter [S99.911A] Order(s):XR CALCANEUS 2V AXIAL/LAT RIGHT [[id number]] Order #: [id number] FUTURE XR ANKLE GENERAL 3V AP/LAT/OBL RIGHT [[id number]] Order #: [id number] FUTURE CONSULT TO PODIATRY [9034] Order #: [id number]: 1 FUTURE Prescriptions as of 04/22/2023 - fluticasone propionate(CUTIVATE 0.05 % LOTION) apply twice daily - fluocinonide(LIDEX 0.05 % TOPICAL CREAM) Apply to rash on hands, chest, and back daily for 2 weeks on, 1 week off. Do not apply to face or skin folds. - fa/mv,ca,fe,min/lycope ne/lut(CENTRUM 0.4 MG-162 MG-18 MG TAB) Take one(1) tablet daily. - COD LIVER OIL CAP Take one(1) tablet daily. - pyridoxine hcl(VITAMIN B-6 100 MG TAB) Take one(1) tablet daily. - hydroxychloroquine sulfate(PLAQUENIL 200 MG TAB) Take one(1) tablet daily. Problem List As Of Date: 04/22/2023 (None) Level of Service: OFFICE/OUTPATIENT NEW LOW MDM 30 MINUTES [42682] LOS History for Encounter Encounter Status:Closed by NAHED RODRIGUEZ on 04/22/23 Normal [facility] No Panel InformationOrdered By: Ccf Provider on 04-22-2023 [facility] XR ANKLE 3V AP/LAT/OBL RTon 04-22-2023 XR ANKLE 3V AP/LAT/OBL RT * * *Final Report* * * DATE OF EXAM: Apr 22 2023 10:56AM WOX 5297 - XR ANKLE 3V AP/LAT/OBL RT / PROCEDURE REASON: Injury of right ankle, initial encounter * * * * Physician Interpretation * * * * TITLE: XR ANKLE 3V AP/LAT/OBL RT CLINICAL INDICATION: Ankle injury TECHNIQUE: 3 view radiographic study of the right ankle COMPARISON: None FINDINGS: No acute fracture or dislocation identified. Small dorsal calcaneal enthesophyte. IMPRESSION: No radiographic evidence of acute osseous injury [employer] Senior Officer: [facility] Transcribe Date/Time: Apr 22 2023 10:56A Dictated by : ENZO AGUIRRE MD This examination was interpreted and the report reviewed and electronically signed by: ENZO AGUIRRE MD on Apr 22 2023 10:58AM EST [id number] Normal [facility] XR Ankle - right AP and Late ral and obliqueon 04-22-2023 IMPRESSION: No radiographic evidence of acute osseous injury [employer] Senior Officer: [facility] Transcribe Date/Time: Apr 22 2023 10:56A Dictated by : ENZO AGUIRRE MD This examination was interpreted and the report reviewed and electronically signed by: ENZO AGUIRRE MD on Apr 22 2023 10:58AM EST DIVISION OF RADIOLOGY * * *Final Report* * * DATE OF EXAM: Apr 22 2023 10:56AM WOX 5297 - XR ANKLE 3V AP/LAT/OBL RT / PROCEDURE REASON: Injury of right ankle, initial encounter * * * * Physician Interpretation * * * * TITLE: XR ANKLE 3V AP/LAT/OBL RT CLINICAL INDICATION: Ankle injury TECHNIQUE: 3 view radiographic study of the right ankle COMPARISON: None FINDINGS: No acute fracture or dislocation identified. Small dorsal calcaneal enthesophyte. DIVISION OF RADIOLOGY Provider, [facility] - 04/22/2023 * * *Final Report* * * DATE OF EXAM: Apr 22 2023 10:56AM WOX 5297 - XR ANKLE 3V AP/LAT/OBL RT / PROCEDURE REASON: Injury of right ankle, initial encounter * * * * Physician Interpretation * * * * TITLE: XR ANKLE 3V AP/LAT/OBL RT CLINICAL INDICATION: Ankle injury TECHNIQUE: 3 view radiographic study of the right ankle COMPARISON: None FINDINGS: No acute fracture or dislocation identified. Small dorsal calcaneal enthesophyte. IMPRESSION IMPRESSION: No radiographic evidence of acute osseous injury [employer] Officer: [facility] Transcribe Date/Time: Apr 22 2023 10:56A Dictated by : ENZO AGUIRRE MD This examination was interpreted and the report reviewed and electronically signed by: ENZO AGUIRRE MD on Apr 22 2023 10:58AM EST [facility] Radiology Study observation (narrative) [facility] XR CALCANEUS 2V AXIAL/LAT RT on 04-22-2023 XR CALCANEUS 2V AXIAL/LAT RT * * *Final Report* * * DATE OF EXAM: Apr 22 2023 10:28AM WOX 5307 - XR CALCANEUS 2V AXIAL/LAT RT / PROCEDURE REASON: Injury of right heel, initial encounter * * * * Physician Interpretation * * * * EXAM TITLE: XR CALCANEUS 2V AXIAL/LAT RT EXAM DATE/TIME: 04/22/2023 10:28 AM COMPARISON: None CLINICAL INDICATION/HISTORY: Injury of the heel. TECHNIQUE: Axial and lateral views of the right calcaneus are presented. FINDINGS: No fractures noted. The subtalar joint space is maintained. The mineralization of the bones is normal. There is no significant soft tissue swelling. IMPRESSION: No acute radiographic abnormalities seen in the right calcaneus. [employer] Officer: [facility] Transcribe Date/Time: Apr 22 2023 10:33A Dictated by : BETTY SANTOS MD This examination was interpreted and the report reviewed and electronically signed by: BETTY SANTOS MD on Apr 22 2023 10:36AM EST [id number] Normal [facility] XR Calcaneus - right 2 Views on 04-22-2023 IMPRESSION: No acute radiographic abnormalities seen in the right calcaneus. [employer]: [facility] Transcribe Date/Time: Apr 22 2023 10:33A Dictated by : BETTY SANTOS MD This examination was interpreted and the report reviewed and electronically signed by: BETTY SANTOS MD on Apr 22 2023 10:36AM [facility] DIVISION OF RADIOLOGY * * *Final Report* * * DATE OF EXAM: Apr 22 2023 10:28AM WOX 5307 - XR CALCANEUS 2V AXIAL/LAT RT / PROCEDURE REASON: Injury of right heel, initial encounter * * * * Physician Interpretation * * * * EXAM TITLE: XR CALCANEUS 2V AXIAL/LAT RT EXAM DATE/TIME: 04/22/2023 10:28 AM COMPARISON: None CLINICAL INDICATION/HISTORY: Injury of the heel. TECHNIQUE: Axial and lateral views of the right calcaneus are presented. FINDINGS: No fractures noted. The subtalar joint space is maintained. The mineralization of the bones is normal. There is no significant soft tissue swelling. DIVISION OF RADIOLOGY Provider, [facility] - 04/22/2023 * * *Final Report* * * DATE OF EXAM: Apr 22 2023 10:28AM WOX 5307 - XR CALCANEUS 2V AXIAL/LAT RT / PROCEDURE REASON: Injury of right heel, initial encounter * * * * Physician Interpretation * * * * EXAM TITLE: XR CALCANEUS 2V AXIAL/LAT RT EXAM DATE/TIME: 04/22/2023 10:28 AM COMPARISON: None CLINICAL INDICATION/HISTORY: Injury of the heel. TECHNIQUE: Axial and lateral views of the right calcaneus are presented. FINDINGS: No fractures noted. The subtalar joint space is maintained. The mineralization of the bones is normal. There is no significant soft tissue swelling. IMPRESSION IMPRESSION: No acute radiographic abnormalities seen in the right calcaneus. [employer]: [employer] Transcribe Date/Time: Apr 22 2023 10:33A Dictated by : BETTY SANTOS MD This examination was interpreted and the report reviewed and electronically signed by: BETTY SANTOS MD on Apr 22 2023 10:36AM EST [facility] Radiology Study observation (narrative) [facility] Encounters Encounter Date Encounter Type Care Provider Facility Start: 03-26-2024 End: 03-26-2024 ambulatory Chalon Jena Facility:[facility] Start: 02-10-2024 ambulatory Chalon Jena Facility:[facility] Start: 02-10-2024 End: 02-10-2024 ambulatory Chalon Jena Facility:[facility] Start: 01-06-2024 ambulatory Apple Chow Facility:[facility] Start: 11-19-2023 End: 11-19-2023 ambulatory Chalon Jena Facility:[facility] Start: 04-22-2023 End: 04-22-2023 ambulatory NAHED RODRIGUEZ Facility:[facility] Start: 04-22-2023 End: 04-22-2023 Subsequent hospital visit by physician Dalia [facility] Work Phone: Radiology Comment on above: Injury of right ankl e, initial encounter [P17.392M] Injury of right heel , initial encounter [L53.658H] Procedures Date Procedure Procedure Detail Performing Clinician Start: 04-22-2023 End: 04-22-2023 Radex ankle complete minimum 3 views Nahed Rodriguez PA-C Work Phone: Plan of Treatment Date Care Activity Detail Author Start: 12-14-2023 Covid-19 Vaccine ( season) Covid-19 Vaccine ( season) [facility] Start: 12-14-2023 Influenza vaccination Influenza Vacc ine (#1) [facility] Start: 2023 RSV Vaccine (1 - 1-d ose 60+ series) RSV Vaccine (1 - 1-dose 60+ series) [facility] Start: 08-20-2018 Prostate specific an tigen measurement Prostate Cancer Screening Discussion [facility] Start: 08-20-2013 Shingrix Vaccine (1 of 2) [place] grix Vaccine (1 of 2) [facility] Start: 05-22-2010 Diabetes Screening Diabetes Screenin g [facility] Start: 08-20-2008 Screening for malign ant neoplasm of colon [facility] Start: 08-20-1998 Lipid panel [facility] Screening [facility] Start: 08-20-1982 Urine microalbumin profile DTa P,Tdap,Td Vaccine (1 - Tdap) [facility] Start: 08-20-1981 Anxiety Screening Anxiety Screening [facility] Start: 08-20-1981 Depression Screening Depression Scre ening [facility] Start: 08-20-1981 Hepatitis C screening Hepatitis C Sc missy [facility] Start: 08-20-1981 HIV screening HIV Screening Jaciel clarke [facility] Payers Date Payer Category Payer Unknown [id number] 2023 Self-pay 2023 Unknown [id number] 1 2020 Unknown [employer] PPO OOS [id number] 2020-Present [phone] [address] [place] [address] PPO [id number] Unknown [id number] Unknown 2008 [id number] Unknown [id number] Unknown [id number] Unknown [id number] Social History Date Type Detail [facility] Start: 1965 Sex assigned at Not on file [facility] Gender identity Not on file [facility] inic Clinical Notes 04-22-2023 to 02-10-2024 Eli Montague RT(R) - 04/22/2023 10:50 AM Eli Swenson RT(R) - 04/22/2023 10:30 AM EST Note Date & Type Note Facility 02-10-2024 Note [facility] Medical Records Department [address] [place] [address] History Physical Exam 02/10/24 1105 MR#: [id number] Acct: [id number] Name: BALWINDER TAVARES #: [id number] : 1965 58 From: Soren Alston MD PCP: Dr. Windy Bella MD Status:[facility] Location: [place] [address] HPI - General General Date of Admission: 02/10/24 Date of Service: 02/10/24 Chief Complaint: Screening colonoscopy HPI Narrative BALWINDER TAVARES, is a 58 M who presents today for screening colonoscopy. He has had no previous colonoscopy. He denies any GI symptoms or problems. It sounds as though his brother may have colon or rectal cancer that he is undergoing treatment for currently [facility] Medical History Wears glasses Marijuana use BPH (benign prostatic hyperplasia) Prostate disease Heartburn Gastric reflux Chronic cough Smoker Cutaneous lupus erythematosus Family hx of colon cancer Home Medications ???Medication ???Instructions ???Recorded ???Last Taken ???Type cholecalciferol (vitamin D3) 50 50 mcg PO QDAY 01/06/24 02/09/24 History mcg (2,000 unit) capsule elderberry fruit 350 mg capsule 350 mg PO DAILY 01/06/24 02/09/24 History pyridoxine (vitamin B6) 100 mg 100 mg PO QDAY 01/06/24 02/08/24 History tablet tamsulosin 0.4 mg capsule (Flomax) 0.8 mg PO QDAY 01/06/24 Unknown History Allergy/AdvReac Type Severity Reaction Status Date / Time No Known Allergies Allergy Verified 02/10/24 09:44 Family History Brother Colon cancer, Onset Age: 70 Surgical History History of mandibular surgery ( 1978) Social History household members: none and other details: current occupational status: employed 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 Smoking Status: Current every day smoker (Patient smoked today.) tobacco type: cigarettes substance use type: does not use ROS Constitutional Constitutional: Reports systems reviewed and no addt'l complaints, except as documented Eyes Eyes: Reports systems reviewed and no addt'l complaints, except as documented ENT HEENT: Reports systems reviewed and no addt'l complaints, except as documented Cardiovascular Cardiovascular: Reports systems reviewed and no addt'l complaints, except as documented Respiratory/Chest Respiratory/Chest: Reports systems reviewed and no addt'l complaints, except as documented Gastrointestinal Gastrointestinal: Reports systems reviewed and no addt'l complaints, except as documented Vital Signs Vital Signs Vital Signs: 02/10/24 09:45 02/10/24 09:45 02/10/24 10:02 Temperature 97.4 F L 97.4 F L Temperature Source Temporal Pulse Rate 62 62 Respiratory Rate 16 16 Respiratory Pattern Normal Blood Pressure 123/80 H 123/80 H Blood Pressure Mean 94 Blood Pressure Source Monitor Blood Pressure Position Semi-Fowlers Blood Pressure Location Left Arm Pulse Ox 99 99 Oxygen Delivery Method Room Air Room Air Weight Weight: 147 lb 7.828 oz Body Mass Index (BMI) 21.1 Physical Exam Narrative He is alert and oriented x 3. He is in no acute distress. Head is normocephalic and atraumatic. Pupils are equal round and reactive to light. Abdomen is soft nontender nondistended. Assessment Plan Assessment/Plan (1) Encounter for screening for malignant neoplasm of colon: PLAN: Plan The patient is a 58-year-old male in need of a screening colonoscopy. This will be his first colonoscopy. We discussed the details of the planned procedure and he wishes to proceed. This will begin momentarily. Charges/Coding Visit Charges Inpatient E M: 62212 Init Hosp L1 02/10/24 1109 Cosigner Signature (if applicable): CC: Dr. Windy Bella MD; Dr. Soren Alston MD Signed [facility] 04-22-2023 Note HNO ID: [id number] Author: ELI MONTAGUE RT(R) Service: Radiology Author Type: Technologist Type: Progress Notes Filed: 04/22/2023 10:56 Note Text: Radiology Service Progress Note PATIENT NAME: Balwinder Tavares DATE OF SERVICE: April 22, 2023 TIME: 10:49 AM PATIENT IDENTITY VERIFICATION COMPLETED USING TWO (2) IDENTIFIERS: Name and Date of confirmed by patient verbally. FALL SCREENING: Has the patient had 2 falls in the last year or 1 fall with injury or currently using an Ambulatory Assistive Device (Walker, Cane, Wheelchair, Crutches, etc.)? No PATIENT GENDER DATA: Male PATIENT RELEVANT IMPLANT DATA REVIEWED: Not Applicable RADIOLOGY DEPARTMENT: General X-ray: Exam(s) Completed: Lower Extremity X-Ray(s): Ankle, Right PERIPHERAL IV DATA: Not applicable SIGNED BY: RT Milo(R) April 22, 2023 10:49 AM [facility] 04-22-2023 Note HNO ID: [id number] Author: ELI MONTAGUE RT(R) Service: Radiology Author Type: Technologist Type: Progress Notes Filed: 04/22/2023 10:28 Note Text: Radiology Service Progress Note PATIENT NAME: Balwinder Tavares DATE OF SERVICE: April 22, 2023 TIME: 10:21 AM PATIENT IDENTITY VERIFICATION COMPLETED USING TWO (2) IDENTIFIERS: Name and Date of confirmed by patient verbally. FALL SCREENING: Has the patient had 2 falls in the last year or 1 fall with injury or currently using an Ambulatory Assistive Device (Walker, Cane, Wheelchair, Crutches, etc.)? No PATIENT GENDER DATA: Male PATIENT RELEVANT IMPLANT DATA REVIEWED: Not Applicable RADIOLOGY DEPARTMENT: General X-ray: Exam(s) Completed: Lower Extremity X-Ray(s): Heel, Right PERIPHERAL IV DATA: Not applicable SIGNED BY: RT Milo(R) April 22, 2023 10:21 AM [facility] 04-22-2023 Note HNO ID: [id number] Author: NAHED RODRIGUEZ PA-C Service: ? 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 States he was on approximately the 4th rung of a ladder in his garage wearing slippers and slipped and landed on his right heel. Unable to bear weight. Painful, but slightly improved when sitting, but exteremly painful with any weight bearing. No pain with movement of the ankle and foot. Has tried advil over the last couple days. Notes some swelling and bruising that started yesterday. No head injury. Did not loose consciousness. No past medical history on file. ALLERGIES Patient has no known allergies. MEDICATIONS Current Outpatient Medications Medication Sig pyridoxine hcl(VITAMIN B-6 100 MG TAB) Take one(1) tablet daily. fluticasone propionate(CUTIVATE 0.05 % LOTION) apply twice daily (Patient not taking: Reported on 04/22/2023) fluocinonide(LIDEX 0.05 % TOPICAL CREAM) Apply to rash on hands, chest, and back daily for 2 weeks on, 1 week off. Do not apply to face or skin folds. (Patient not taking: Reported on 04/22/2023) fa/mv,ca,fe,min/lycopene/lut(CE NTRUM 0.4 MG-162 MG-18 MG TAB) Take one(1) tablet daily. (Patient not taking: Reported on 04/22/2023) COD LIVER OIL CAP Take one(1) tablet daily. (Patient not taking: Reported on 04/22/2023) hydroxychloroquine sulfate(PLAQUENIL 200 MG TAB) Take one(1) tablet daily. (Patient not taking: Reported on 04/22/2023) No current facility-administered medications for this visit. SOCIAL HISTORY REVIEW OF SYSTEMS See HPI OBJECTIVE: BP 120/68 Pulse 70 Temp 36.1 ?C (96.9 ?F) Resp 16 Wt 70.8 kg (156 lb) SpO2 97% APPEARANCE Well appearing, alert, in no acute distress, well-hydrated, well nourished. EXTREMITIES Extremities normal, No deformities, + ecchymosis inferior to the right medial malleolus just above heel. + TTP. + TTP central calcaneus. Normal ROM ankle and digits. No TTP malleoli. Negative Dunbar's. No TTP over achilles tendon or insertion. No edema, and Normal pulses bilaterally. Good capillary refill, sensation grossly intact. ASSESSMENT/PLAN: 1. Injury of right heel, initial encounter - ICD9: 959.7, ICD10: S99.921A (primary diagnosis) XR negative for fracture. Suspect contusion. Normal exam and testing of the achilles. Patient prefers tennis shoe over post op shoe. Given crutches at exam today. Rest with crutches and then advance weight bearing as tolerating If not improving or worsening-recommend close f/u with podiatry or ortho. - XR CALCANEUS 2V AXIAL/LAT RIGHT - XR ANKLE GENERAL 3V AP/LAT/OBL RIGHT - CONSULT TO PODIATRY 2. Injury of right ankle, initial encounter - ICD9: 959.7, ICD10: S99.911A As above - XR ANKLE GENERAL 3V AP/LAT/OBL RIGHT Nahed Rodriguez PA-C 04/22/2023 [facility] 04-22-2023 History of Present illness Narrative Radiology Service Progress Note PATIENT NAME: Balwinder Tavares DATE OF SERVICE: April 22, 2023 TIME: 10:49 AM PATIENT IDENTITY VERIFICATION COMPLETED USING TWO (2) IDENTIFIERS: Name and Date of confirmed by patient verbally. FALL SCREENING: Has the patient had 2 falls in the last year or 1 fall with injury or currently using an Ambulatory Assistive Device (Walker, Cane, Wheelchair, Crutches, etc.)? No PATIENT GENDER DATA: Male PATIENT RELEVANT IMPLANT DATA REVIEWED: Not Applicable RADIOLOGY DEPARTMENT: General X-ray: Exam(s) Completed: Lower Extremity X-Ray(s): Ankle, Right PERIPHERAL IV DATA: Not applicable SIGNED BY: RT Milo(R) April 22, 2023 10:49 AM documented in this encounter [facility] 04-22-2023 History of Present illness Narrative Radiology Service Progress Note PATIENT NAME: Balwinder Tavares DATE OF SERVICE: April 22, 2023 TIME: 10:21 AM PATIENT IDENTITY VERIFICATION COMPLETED USING TWO (2) IDENTIFIERS: Name and Date of confirmed by patient verbally. FALL SCREENING: Has the patient had 2 falls in the last year or 1 fall with injury or currently using an Ambulatory Assistive Device (Walker, Cane, Wheelchair, Crutches, etc.)? No PATIENT GENDER DATA: Male PATIENT RELEVANT IMPLANT DATA REVIEWED: Not Applicable RADIOLOGY DEPARTMENT: General X-ray: Exam(s) Completed: Lower Extremity X-Ray(s): Heel, Right PERIPHERAL IV DATA: Not applicable SIGNED BY: RT Milo(R) April 22, 2023 10:21 AM documented in this encounter [facility] Evaluation note Diagnosis Injury of right ankle, initial encounter [facility] Injury of right heel, initial encounter documented in this encounter [facility] for referral (narrative)* Diagnostic Procedure Only (Urgent) - Closed Specialty Diagnoses / Procedures Referred By Contac t Referred To Contact XR IMAGING Diagnoses Injury of right ankle, initial encounter Injury of right heel, initial encounter Procedures XR ANKLE GENERAL 3V AP/LAT/OBL RIGHT RADEX ANKLE COMPLETE MINIMUM 3 VIEWS Nahed Rodriguez PA-C [address] [place] [address] [place] [address] Referral ID Status Reason Start Date Expiration Date V isits Requested Visits Authorized [id number] Closed Auto-Generate d Referral 04/22/2023 05/21/2024 1 1 [facility] for referral (narrative)* Diagnostic Procedure Only (Urgent) - Closed Specialty Diagnoses / Procedures Referred By Contac t Referred To Contact XR IMAGING Diagnoses Injury of right heel, initial encounter Procedures XR CALCANEUS 2V AXIAL/LAT RIGHT RADEX CALCANEUS MINIMUM 2 VIEWS Nahed Rodriguez PA-C [address] [place] [address] [place] [address] Referral ID Status Reason Start Date Expiration Date V isits Requested Visits Authorized [id number] Closed Auto-Generate d Referral 04/22/2023 05/21/2024 1 1 [facility] for visit Narrative* Diagnostic Procedure Only (Urgent) - Closed Specialty Diagnoses / Procedures Referred By Contac t Referred To Contact XR IMAGING Diagnoses Injury of right ankle, initial encounter Injury of right heel, initial encounter Procedures XR ANKLE GENERAL 3V AP/LAT/OBL RIGHT RADEX ANKLE COMPLETE MINIMUM 3 VIEWS Nahed Rodriguez PA-C [address] [place] [address] [place] [address] Referral ID Status Reason Start Date Expiration Date V isits Requested Visits Authorized [id number] Closed Auto-Generate d Referral 04/22/2023 05/21/2024 1 1 [facility] for visit Narrative* Diagnostic Procedure Only (Urgent) - Closed Specialty Diagnoses / Procedures Referred By Vicki t Referred To Contact XR IMAGING Diagnoses Injury of right heel, initial encounter Procedures XR CALCANEUS 2V AXIAL/LAT RIGHT RADEX CALCANEUS MINIMUM 2 VIEWS Nahed Rodriguez PA-C [address] [place] [address] [place] [address] Referral ID Status Reason Start Date Expiration Date V isits Requested Visits Authorized [id number] Closed Auto-Generate d Referral 04/22/2023 05/21/2024 1 1 [facility] Summary Purpose Family History No Family History Records FoundNo Family History Records Found Advance Directives No Advanced Directives Records FoundNo Advanced Directives Records Found Additional Source Comments (unrecognized sect ion and content) No Status Records FoundNo Status Records Found INFORMATION SOURCE (unrecogn ized section and content) DATE CREATED AUTHOR 04/23/2023 [facility] DATE CREATED AUTHOR AUTHOR'S ORGANIZ ATION 04/30/2024 [facility] Source Comments (unrecognize d section and content) In the event this informatio n is protected by the Federal Confidentiality of Alcohol and Drug Abuse Patient Records regulations: The Federal rules restrict any use of the information to criminally investigate or prosecute any alcohol or drug abuse patient.[facility] FOR RECORDS PERTAINING TO PATIENTS WHO ARE OR HAVE BEEN ENROLLED IN A CHEMICAL DEPENDENCY/SUBSTANCEABUSE PROGRAM, SOME INFORMATION MAY BE OMITTED. This clinical summary was aggregated from multiple sources. Caution should be exercised in using it in the provision of clinical care. This summary normalizes information from multiple sources, and as a consequence, information in this document may materially change the coding, format and clinical context of patient data. In addition, data may be omitted in some cases. CLINICAL DECISIONS SHOULD BE BASED ON THE PRIMARY CLINICAL RECORDS. [facility] [employer] provides no warranty or guarantee of the accuracy or completeness of information in this document.
[2024-12-10 17:48] LABS: Hematocrit 41.6 % (40-54); Hemoglobin 14.1 g/dL (13.0-16.5); Mean Corp Hgb Conc 33.9 g/dL (32-36); Mean Corpuscular Volume 92.9 fL (80-94); Mean Platelet Vol. 10.3 fl (6.2-12.0); Platelet Count 238 K/mm3 (150-450); RBC Distribution Width CV 13.5 % (11.6-14.6); RBC Distribution Width SD 46.3 fl (35.1-43.9); Red Blood Count 4.48 M/mm3 (4.6-6.2); White Blood Count 5.3 K/mm3 (4.4-11.0)
[2024-12-10 18:44] LABS: AST(SGOT) 20 U/L (<=37); Alanine Aminotransfer ALT/SGPT 16 U/L (<=46); Albumin, Serum 4.0 g/dL (3.4-4.8); Alkaline Phosphatase 65 U/L (40-129); Anion Gap 12 (5-15); BUN 14 mg/dL (4-19); BUN/Creat Ratio 17.8 RATIO (10-20); Calcium,Total 9.1 mg/dL (7.6-11.0); Carbon Dioxide 24.7 mmol/L (21.0-32.0); Chloride 101 mmol/L (98-108); Cholesterol 125 mg/dL (<=200); Globulin 2.9 g/dL (2.2-4.2); Glucose 88 mg/dL (70-99); Low Density Lipoprotein Calc. 71 mg/dL; Potassium 4.2 mmol/L (3.3-5.1); Triglycerides 60 mg/dL; Very Low Density Lipoprotein 12 mg/dL (5-40); Vitamin D,25 Hydroxy 17.6 ng/mL (30-100); cholesterol:hdl ratio screen 2.97
== END | disposition home or self-care (01) ==
LOC: MFPLAB 13:30
PROVIDERS: PCP Family Medicine; Referring Provider Family Medicine; Visit Provider Family Medicine
DX: Z00.00 Encounter for general adult medical examination without abnormal findings (principal); Z13.220 Encounter for screening for lipoid disorders; Z13.1 Encounter for screening for diabetes mellitus
CPT/HCPCS: 36415; 80053; 80061; 82306; 85027